=== PATIENT | male | born 1995 | race African-American/Black ===

== ENCOUNTER 2016-06-21 15:32 | Emergency (ER) | payer SELFPAY ==
[~2016-06-21] VITALS: Ht 182.9 cm; Wt 59.0 kg
[2016-06-21 17:49] VITALS: BP 128/72
[2016-06-21] MEDS ORDERED: IBUPROFEN 800 MG TAB PO ONE ×2 (17:57→18:00)
[2016-06-21] MEDS ORDERED: KETOROLAC TROMETH 60MG/2ML VIAL IM ONE (18:00)
== END 2016-06-21 18:56 | disposition home or self-care (01) ==
LOC: ER 15:45
DX: S83.92XA Sprain of unspecified site of left knee, initial encounter (principal); V00.131A Fall from skateboard, initial encounter; Y93.21 Activity, ice skating; Y99.8 Other external cause status; Y92.89 Other specified places as the place of occurrence of the external cause
CPT/HCPCS: 73562; J1885